=== PATIENT | female | born 1985 | race Caucasian/White ===

== ENCOUNTER 2022-01-26 17:46 | Emergency (ER) | payer MEDICAID ==
[~2022-01-26] VITALS: Ht 165.1 cm; Wt 61.2 kg
[2022-01-26] MEDS ORDERED: FAMOTIDINE 20MG/2ML VIAL IV STA (19:07)
[2022-01-26] MEDS ORDERED: ONDANSETRON HCL 4MG/2ML INJ IV STA (19:07)
[2022-01-26] MEDS ORDERED: MORPHINE SULFATE 4 MG/ML CPJ (NOT FOR IM USE) IV STA (19:07)
[2022-01-26] MEDS ORDERED: SODIUM CHLORIDE 0.9% 1,000 ML IV ONE (19:15)
[2022-01-26 19:32] LABS: HEMATOCRIT. 41.1 % (36.0-48.0); HEMOGLOBIN. 13.6 g/dL (12.0-16.0); MEAN CORPUSCULAR HEMOGLOBIN 29.5 pg (28.0-32.0); PLATELET 296 x1000/uL (130-400); RED BLOOD CELL COUNT 4.62 mill/uL (4.2-5.4); RED CELL DISTRIBUTION WIDTH 12.5 % (11.6-14.6)
[2022-01-26 19:42] LABS: CHLORIDE 109 mEq/L (98-107)
[2022-01-26 19:55] LABS: PLATELET ESTIMATE NORMAL
[2022-01-26 20:40] LABS: CLARITY URINE CLOUDY (CLEAR); COLOR URINE DARK YELLOW (YELLOW); KETONES URINE 4+ (NEGATIVE); LEUKOCYTE ESTERASE URINE NEGATIVE (NEGATIVE); NITRITE URINE NEGATIVE (NEGATIVE); OCCULT BLOOD URINE NEGATIVE (NEGATIVE); PH URINE 5.5 (4.5-8.0); PROTEIN URINE 1+ (NEGATIVE); SPECIFIC GRAVITY URINE 1.036 (1.005-1.030)
[2022-01-26 20:45] LABS: HCG SCREEN NEGATIVE
[2022-01-26] MEDS ORDERED: CIPR-263 MT (22:21)
[2022-01-26] MEDS ORDERED: ONDA4TAB50 MT (22:21)
[2022-01-26] MEDS ORDERED: FAMO40TA70 MT (22:21)
[2022-01-26 23:11] VITALS: BP 123/64
== END 2022-01-26 23:12 | disposition home or self-care (01) ==
LOC: ER 17:46 → EDBD 17:46 → ER 23:12
DX: E86.0 Dehydration (principal); R19.7 Diarrhea, unspecified; R11.10 Vomiting, unspecified
CPT/HCPCS: 36415; 74176; 80053; 81003; 81025; 83690; 84703; 85025; 96361; 96374; 96375; 99284; J2270; J2405; J3490; J7030